=== PATIENT | female | born 2005 | race Two or more races ===

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

== ENCOUNTER 2025-01-27 18:44 | Emergency (ER) | payer OTHER, SELFPAY ==
--- NOTE | ~2025-01-27 | CT_ITS ---
Non-contrast CT scan of the Abdomen and Pelvis Clinical indication: Abdominal pain Technique: 2.5 mm axial scans were obtained through the abdomen and pelvis without intravenous or or al contrast. Dose reduction technique was used on this scan by utilizing automated exposure control a nd iterative reconstruction technique. The dose-length product (DLP) was 188.46 mGy-cm. Findings: Images through the lung bases reveal no abnormalities. 2 mm obstructing renal stone present. No left renal stone. No ureteral stone or hydronephrosis on eit her side. The liver, spleen, pancreas, gallbladder, and adrenals appear normal. There is no aortic aneurysm. There is no evidence of bowel obstruction. Images through the pelvis were performed. There is no evidence of ascites or lymphadenopathy. Urinary bladder unremarkable. No pelvic mass seen. No ascites. Impression: 2 mm nonobstructing right renal stone. Reviewed, dictated and finalized at [facility]. Impression: 2 mm nonobstructing right renal stone.
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
--- OUTSIDE RECORDS SUMMARY | 2025-01-27 18:46 | XMS_ITS | Clinical Summary ---
Author Organization [facility] Address [facility] [place] [address] Care Team Providers Care Sheet Ironworker Name Role Phone Unavailable Primary Care Provider Unavailabl e Social History Tobacco Use Types Packs/Day Years Used Date Smoking Tobacco: Never Assessed Comments Unknown Sex and Gender Information Value Date Recorded Sex Assigned at Not on file Legal Sex Female 7:20 PM CDT Gender Identity Not on file Sexual Orientation Not on file Last Filed Vital Signs Vital Sign Reading Time Taken Comments Blood Pressure 102/58 01/25/2017 10:42 AM CDT Pulse 60 01/25/2017 10:42 AM CDT Temperature - - Respiratory Rate - - Oxygen Saturation - - Inhaled Oxygen Concentration - - Weight 49 kg (108 lb) 01/25/2017 10:42 AM CDT Height 149.9 cm (4' 11) 01/25/2017 10:42 AM CDT Body Mass Index 21.81 01/25/2017 10:42 AM CDT Plan of Treatment Health Maintenance Due Date Last Done Comments Annual Physical 2007 Hepatitis B Vaccines (4 of 4 - 4-dose series) 10/05/2016 08/17/2016, 07/16/2016, 06/15/2016 HPV Vaccines (1 - 3-dose series) 2019 Meningococcal B Vaccine (1 o f 2 - Standard) 2020 Hepatitis C 2022 COVID-19 Vaccine ( - 2023-2 5 season) 2024 DTaP, Tdap and Td Vaccines ( 2 - Tdap) 08/17/2026 08/17/2016 Meningococcal Vaccine Aged Out 01/25/2017 No randal marquez eligible based on patient's age to complete this topic Pneumococcal Vaccine: Pediatrics (0 to 5 Years) and At-Risk Patients (6 to 49 Years) Aged Out No longer eligible b ased on patient's age to complete this topic RSV Immunizations Under 20 Months Aged Out No longer eligible b ased on patient's age to complete this topic
[2025-01-27 19:03] VITALS: BP 111/74; PULSE 77; RESP 20; TEMP 36.6; O2SAT 100
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
[2025-01-27 20:44] VITALS: BP 112/52; PULSE 71; RESP 18; TEMP 36.7; O2SAT 97
[2025-01-27 20:51] LABS: Hematocrit 42.7 % (37.0-47.0); Hemoglobin 13.7 g/dL (12.0-15.0); Immature Granulocyte Percent A 0.4 % (0-0.5); Lymphocytes Absolute Auto 3.42 K/mm3 (0.9-3.2); Mean Corpuscular HGB Conc 32.1 g/dl (32-36); Mean Corpuscular Hemoglobin 29.1 pg (26-34); Mean Corpuscular Volume 90.9 fl (80-100); Nucleated Red Blood Cells Absolute Auto 0.000 K/mm3 (0.0-0.012); Nucleated Red Blood Cells Perc 0.0 % (0.0-0.2); Platelet Count Result 289 k/mm3 (150-375); Red Blood Count 4.70 M/mm3 (4.2-5.4); White Blood Count 16.7 K/mm3 (4.5-10.0)
[2025-01-27 21:00] LABS: BEDSIDEPREGUCG Negative (Negative)
[2025-01-27 21:01] LABS: Alanine Aminotransferase 20 U/L (6-35); Albumin Level 4.5 g/dL (3.5-5.1); Alkaline Phosphatase 61 U/L (38-126); Anion Gap 8 mmol/L (4-12); Aspartate Amino Transferase 30 U/L (14-36); Bilirubin,Total 0.6 mg/dL (0.2-1.3); Blood Urea Nitrogen 14 mg/dL (7-17); Calcium 9.3 mg/dL (8.4-10.2); Carbon Dioxide 25 mmol/L (22-30); Chloride 104 mmol/L (98-107); Estimated CRCL calculation 75 ml/min; Estimated Glomerular Filt Rate > 60; Glucose 94 mg/dL (65-110); Potassium 4.2 mmol/L (3.4-5.0); Sodium 137 mmol/L (137-145); Total Protein 8.2 g/dL (6.3-8.2)
--- OUTSIDE RECORDS SUMMARY | 2025-01-27 22:11 | XMS_ITS | Clinical Summary ---
Author Organization [facility] Address [address] [id number] Phone Care Team Providers Care Technology Resource Teacher Name Role Phone Gustabo Melton MD Primary Care Provider [phone] Medications adapalene (Differin) 0.1 % cream twice [...] Comments Blood Pressure 109/69 06/12/2021 1:21 PM POLITICAL GEOGRAPHER Pulse 84 06/12/2021 1:21 PM POLITICAL GEOGRAPHER Temperature 36.8 C (98.2 F) 06/12/2021 1:21 PM POLITICAL GEOGRAPHER Respiratory Rate - - Oxygen Saturation 97% 06/12/2021 1:21 PM POLITICAL GEOGRAPHER Inhaled Oxygen Concentration - - Weight 50.8 kg (112 lb) 06/12/2021 1:21 PM POLITICAL GEOGRAPHER Height 150.5 cm (4' 11.25) 06/12/2021 1:21 PM Laverne GARCIA Body Mass Index 22.43 06/12/2021 1:21 PM POLITICAL GEOGRAPHER Plan of Treatment Health Maintenance Due Date [...] complete this topic Insurance AMB[employer]TER Care Teams Technology Resource Teacher Relationship Specialty Start Date End Date Gustabo Melton MD [address] [place] [address] [phone] PCP - General Family Medicine 04/27/24
[2025-01-27 22:36] VITALS: BP 113/67; PULSE 78; RESP 18; O2SAT 100
--- NOTE | 2025-01-27 22:36 | PC.NURSE ---
Pt in CT scan at this time.
[2025-01-27 23:30] LABS: BEDSIDEPREGUCG Negative (Negative)
[2025-01-27 23:33] LABS: Add Urine Microscopic? YES; Appearance Urine Cloudy (Clear); Glucose Urine UA Negative (Negative); Leukocyte Esterase Ur Negative LEU/UL (Negative); Nitrate Urine Negative (Negative); Non Pathogenic Casts 0-2; Specific Grav Ur 1.017 (1.001-1.035)
[2025-01-28 00:54] VITALS: BP 108/52; PULSE 65; RESP 18; TEMP 36.7; O2SAT 98
[2025-01-28 02:05] VITALS: BP 109/61; PULSE 91; RESP 18; O2SAT 93
== END 2025-01-28 02:06 | disposition home or self-care (01) ==
PROVIDERS: Emergency Provider Registered Nurse Emergency
DX: S49.91XA Unspecified injury of right shoulder and upper arm, initial encounter (principal); S49.92XA Unspecified injury of left shoulder and upper arm, initial encounter; N20.0 Calculus of kidney; V49.40XA Driver injured in collision with unspecified motor vehicles in traffic accident, initial encounter
CPT/HCPCS: 36415; 74176; 80053; 81001; 81025; 85025; 99284